=== PATIENT | male | born 1985 | race Caucasian/White ===

== ENCOUNTER 2024-12-12 15:17 | Emergency (ER) | payer OTHER, SELFPAY ==
[2024-12-12 15:21] VITALS: BP 125/82; PULSE 107; RESP 16; TEMP 36.9; O2SAT 98; BMI 31.4
--- OUTSIDE RECORDS SUMMARY | 2024-12-12 15:23 | XMS_ITS | Clinical Summary ---
Author Organization [facility] Address [address] [facility] Attn: Epic Prelude ADT [place] [id number] Care Team Providers Care Riprap Worker Name Role Phone Nena Chou MD Primary Care Provider Allergies Active Allergy Reactions Criticality Noted Date Comments Iodine Anaphylaxis High 06/07/2021 Penicillins Hives High 06/07/2021 Sulfa (Sulfonamide Antibiotics) Hives High 05/10 Medications No known medications Active Problems No known active problems Encounters Date Type Department Care Team Description 10/20/2024 7:45 AM CDT Office Visit [facility] [address] [place] [address] Osman Morales MD Trigger thumb, right thumb (Primary Dx) 10/11/2024 Transcribe Orders [facility] Pre-Registration [place] CALL TO MAKE APPOINTMENT ONLY [address] [place] [address] Nena Chou MD Right shoulder pain (Primary Dx) 09/20/2024 10:45 AM CDT Office Visit [facility] [place] [address] [facility] [address] [place] [id number] Dontrell Mcnair MD Trigger thumb, right thumb (Primary Dx) from Last 3 Months Immunizations Immunization Administration Dates Next Due (M-M-R II/PRIORIX)(12 MO UP) MEASLES, MUMPS AND RUBELLA VIRUS VACCINE, 0.5 ML IM/SUBCUT 12/08/1989,04/25/1988 (TDVAX)(7 YRS UP) TETANUS AN D DIPHTHERIA TOXOIDS, ADSORBED (2 LF OF TETANUS TOXOID AND 2 LF OF DIPHTHERIA TOXOID), 0.5ML (PF), IM 10/17/1998 Dt Dtp Dtap Vaccine 03/26/1985, 5,1984,1984,1984 Hepatitis A Vaccine 07/19/2002,12/28/2001 Hepatitis B Vaccine 05/31/1999,12/06/1998,1998 INFLUENZA VACCINE QUADRIVALE NT 6 MOS UP PF IM 12/13/2022 IPV/OPV 04/25/1988, 6,1984,1984,1984,1984 Social History Tobacco Use Types Packs/Day Years Used Date Smoking Tobacco: Never Tobacco Cessation:Counseling Given: Not Answered Sex and Gender Information Value Date Recorded Sex Assigned at Not on file 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 Gender Identity Not on file Sexual Orientation Not on file Last Filed Vital Signs Vital Sign Reading Time Taken Comments Blood Pressure 122/78 10/20/2024 7:49 AM CDT Pulse 101 06/07/2021 3:13 PM CDT Temperature 36.7 C (98 F) 06/07/2021 3:13 PM CDT Respiratory Rate 16 06/07/2021 3:13 PM CDT Oxygen Saturation 96% 06/07/2021 3:13 PM CDT Inhaled Oxygen Concentration - - Weight 98.4 kg (217 lb) 10/20/2024 7:49 AM CDT Height 172.7 cm (5' 8 ) 10/20/2024 7:49 AM CDT Body Mass Index 32.99 10/20/2024 7:49 AM CDT Plan of Treatment Health Maintenance Due Date Last Done Comments Pre-Diabetes and Diabetes Screening 1984 DTAP/TDAP/TD VACCINES (6 - Tdap) 10/18/1998 10/17/1998, 03/26/1985, 1984, Additional history exists HPV VACCINES (1 - 3-dose SCD M series) 01/11/2011 INFLUENZA VACCINE (#1) 2024 3, 12/02/2019, 12/09/2012, Additional history exists HEPATITIS B VACCINES Completed 05/31/1999, 05/31/1999, 12/06/1998, Additional history exists Insurance RX [employer] [place] [id number] Care Teams Riprap Worker Relationship Specialty Start Date End Date Nena Chou MD [address] [phone] PCP - General Family Practice 10/11/24
--- NOTE | 2024-12-12 15:36 | W.ED.SKABFB ---
HPI - Skin/Abscess/Foreign Bdy General: Chief complaint: Skin/Abscess/Foreign Body Stated complaint: pain on bottom Time Seen by Provider: 12/12/24 15:27 Source: patient Mode of arrival: ambulatory Limitations: no limitations History of Present Illness: Patient is a 39-year-old male presents to ED today with a complaint of hemorrhoids. He states he has had hemorrhoids for many many years but states he can normally treat them conservatively at home with [id number] medications and epsom salt warm baths. Patient states over the past several days his hemorrhoids have gotten significantly larger and more uncomfortable. He does feel like he is having soft stools and is not straining. complaint: other (Hemorrhoids) Onset (ago): day(s) Tetanus up to date: yes Location: buttocks Severity: severe Relieving factors: none Exacerbating factors: other (sitting) Context: none Associated symptoms: Reports no associated symptoms; Deny chills, fever(s), nausea or vomiting Treatments prior to arrival: other (otc medications) Related Data Previous Rx's ?Medication ?Instructions ?Recorded hydrocodone 5 mg-acetaminophen 325 1 tab PO Q6H PRN pain #14 tabs 12/12/24 mg tablet hydrocortisone 25 mg-pramoxine 18 1 supp ME BID #12 ea 12/12/24 mg rectal suppository lidocaine 5 %-phenylephrine 0.25 1 applic topical TID PRN 12/12/24 %-glycern 14.4 %-petrolatm 15 % hemorrhoids #28 grams cream (Preparation H Rapid Relief-Lidocaine) Allergies Allergy/AdvReac Type Severity Reaction Status Date / Time iodine Allergy ALGY-Hives Verified 12/12/24 15:24 Penicillins Allergy ALGY-Hives Verified 12/12/24 15:24 Sulfa (Sulfonamide Allergy Unknown Verified 12/12/24 15:24 Antibiotics) Review of Systems Const: Denies: fever(s), chills, body aches, fatigue or malaise GI: Reports: rectal pain and other (hemorrhoids); Denies: abdominal pain, nausea, vomiting, diarrhea, constipation, hematochezia or melena Skin/Breast: Denies: rash Physical Exam Const: COMMON NORMALS: no acute distress, average body habitus, patient oriented x3, no limitations, healthy appearing, alert and well nourished Resp: COMMON NORMALS: normal respiratory effort and clear to auscultation bilaterally AUSCULTATION: clear to auscultation bilaterally Cardio: COMMON NORMALS: regular rate and regular rhythm RATE: regular rate RHYTHM: regular rhythm GI: COMMON NORMALS: Normal to inspection, nondistended, normoactive bowel sounds present, Soft to palpation, non-tender, No hepatosplenomegaly present and no masses PALPATION: Yes Soft to palpation and Yes No hepatosplenomegaly present RECTAL EXAM: Yes hemorrhoids (large/multiple external hemorrhoids; thrombosed/non-thrombosed components) Neuro: COMMON NORMALS: patient oriented x3 SENSORIUM/ORIENTATION: Yes alert Course Vital Signs: Vital signs: Vital Signs Temperature 98.5 F 12/12/24 15:21 Pulse Rate 107 H 12/12/24 15:21 Respiratory Rate 16 12/12/24 15:21 Blood Pressure 125/82 12/12/24 15:21 Pulse Oximetry 98 12/12/24 15:21 Oxygen Delivery Me thod Room Air 12/12/24 15:21 MDM - Skin/Abscess/Foreign Bdy Medicial Decision Making Patient has large/severe external hemorrhoids with thrombosed/non-thrombosed components. I feel due to the severity of these-they may very likely require surgical intervention. I will see if case management can get him set up with general surgery this week. Will place him on medications to hopefully help over the next week as well as pain medications he can use sparingly. Medical Records I reviewed the patient's medical records. No radiology studies performed this visit Discharge Plan Discharge Patient Disposition: Home Clinical Impression: External hemorrhoids Condition: Stable Prescriptions: New hydrocortisone-pramoxine 25-18 mg suppository 1 supp ME BID Qty: 12 0RF Preparation H Rapid Rlf-Lidocn 5-0.25-14.4-15 % cream 1 applic topical TID PRN (Reason: hemorrhoids) Qty: 28 0RF hydrocodone-acetaminophen 5-325 mg tablet 1 tab PO Q6H PRN (Reason: pain) Qty: 14 0RF Discharge Orders: Discharge ED (Routine); Ordered 12/12/24 Ordered By: Lizeth Majano Patient Instructions: Hemorrhoids (ED), Hemorrhoids (DC), Opioid Safety, Pain Management, Patient Portal & Dilan Instructions Activity Restrictions/Additional Instructions: As we discussed, continue sitz baths is much as possible. Begin taking an [id number]-qfa-sruhxst stool softener such as Colace to keep your stools soft and avoid straining. Case management should reach out to you early this week to help set you up with your follow-up appointment with general surgery. Please fill your medications and use the rectal medications as prescribed. You may use the oral pain medications sparingly as needed for significant discomfort. Print Language: Irish Coding Level of Care Code ED Land Lease Information Clerk for Julio C Larios
[2024-12-12 16:15] VITALS: BP 124/77; PULSE 96; O2SAT 100
--- NOTE | 2024-12-13 09:45 | DCPLANNER ---
messaged gen surg for er f/u
== END 2024-12-12 16:00 | disposition home or self-care (01) ==
PROVIDERS: Emergency Provider Physician Assistant
DX: K64.4 Residual hemorrhoidal skin tags (principal)
CPT/HCPCS: 99283